=== PATIENT | male | born 1995 | race Caucasian/White ===

== ENCOUNTER 2020-01-19 11:08 | Emergency (ER) | payer OTHER, SELFPAY ==
--- NOTE | ~2020-01-19 | XR_ITS ---
XR chest 2V DATE: 01/19/2020 11:30 INDICATION: Midsternal chest pain TECHNIQUE: PA and lateral views COMPARISON: None FINDINGS: Normal heart size. No hilar or mediastinal enlargement. No pulmonary infiltrate or consolid ation, pleural effusion or pulmonary vascular congestion or pneumothorax. IMPRESSION: No active cardiopulmonary disease Reviewed, dictated and finalized at location B.
[2020-01-19 11:09] VITALS: BP 98/63; PULSE 89; RESP 16; TEMP 36.8; O2SAT 99
--- NOTE | 2020-01-19 11:14 | ECG_ITS ---
Measurements Intervals [place] Rate: 70 P: 76 WV: 152 QRS: 77 QRSD: 96 T: 47 QT: 336 QTc: 363 Interpretive Statements SINUS RHYTHM ST ELEVATION IN ANT/INF LEADS- PROBABLY EARLY REPOLARIZATION BORDERLINE ECG Electronically Signed On 01-19-2020 11:21:52 CDT by Adonis Portillo D.O.
[2020-01-19 11:25] LABS: Basophils Percent Auto 0.3 % (0.2-1.2); Eosinophils Absolute Auto 0.1 K/mm3 (0-0.3); Eosinophils Percent Auto 0.7 % (0-4.4); Hematocrit 45.1 % (42.0-52.0); Hemoglobin 15.6 g/dL (14.0-18.0); Immature Granulocyte Absolute 0.03 K/mm3 (0.00-0.031); Immature Granulocyte Percent A 0.3 % (0-0.5); Lymphocytes Absolute Auto 1.28 K/mm3 (0.9-3.2); Lymphocytes Percent Auto 14.1 % (18.3-44.2); Mean Corpuscular HGB Conc 34.6 g/dl (32-36); Mean Corpuscular Hemoglobin 30.9 pg (26-34); Mean Corpuscular Volume 89.3 fl (80-100); Mean Platelet Volume 9.7 fl (7.4-10.4); Monocytes Absolute Auto 0.6 K/mm3 (0.1-0.6); Monocytes Percent Auto 6.2 % (2.6-8.5); Neutrophils Absolute Auto 7.1 K/mm3 (1.3-6.7); Neutrophils Percent Auto 78.4 % (45.5-73.1); Platelet Count Result 229 k/mm3 (150-375); Red Blood Count 5.05 M/mm3 (4.6-6.20); Red Cell Distribution Width 12.3 % (11.5-14.5); White Blood Count 9.1 K/mm3 (4.5-10.0)
[2020-01-19 11:37] LABS: Blood Urea Nitrogen 15 mg/dL (9-20); Calcium 9.6 mg/dL (8.4-10.2); Carbon Dioxide 25 mmol/L (22-30); Chloride 105 mmol/L (98-107); Estimated CRCL calculation 157 ml/min; Estimated Glomerular Filt Rate > 60; Glucose 104 mg/dL (75-110); Potassium 4.4 mmol/L (3.4-5.0); Sodium 138 mmol/L (137-145)
[2020-01-19 11:43] LABS: INR 0.9; Prothrombin Time 12.2 Seconds (11.1-14.7)
[2020-01-19 11:44] LABS: Partial Thromboplastin Time 25.2 SECONDS (22.3-36.8)
[2020-01-19 11:49] LABS: Troponin I < 0.012 ng/mL (0.000-0.034)
[2020-01-19 12:59] VITALS: PULSE 61
[2020-01-19 13:00] VITALS: BP 125/74; PULSE 60; RESP 14; O2SAT 97
[2020-01-19] MEDS: ASPIRIN 81 MG CHEWABLE TABLET 324 MG PO (13:08)
--- NOTE | 2020-01-19 13:37 | ED.CHESTPAIN ---
HPI - Chest Pain General Chief Complaint: Chest Pain Stated Complaint: cp Time Seen by Provider: 01/19/20 12:53 History of Present Illness HPI narrative: Patient is a 24-year-old male who presents the ER with chest pain. Began yesterday while eating [employer] for lunch. Chaplin some discomfort in his central chest that radiates up into his neck. He has no difficulty actually breathing or swallowing. Patient reports symptoms are worse if he takes a deep breath, presses on his central chest, or lays down. No burning in his throat. No nausea or vomiting. Has not had similar symptoms before. Related Data Home Medications Medication Instructions Recorded Confirmed glycopyrrolate 1 mg PO DAILY 01/19/20 Allergies Allergy/AdvReac Type Severity Reaction Status Date / Time No Known Allergies Allergy Unknown Verified 01/19/20 11:12 Review of Systems Review of Systems: All systems reviewed & are unremarkable except as noted in HPI and below Constitutional: Constitutional: Denies chills and Denies weakness ENT: Denies nasal congestion and Denies sore throat Cardiovascular: Cardiovascular: Reports chest pain and Denies radiating jaw, neck or arm pain Respiratory: Respiratory: Denies cough and Denies dyspnea Gastrointestinal: Gastrointestinal: Denies abdominal pain, Denies diarrhea, Denies nausea and Denies vomiting PMFSH Past Medical History Medical History (Updated 01/19/20 @ 15:59 by Silviano Dougherty MD) Healthy adult male Surgical History Surgical History (Updated 01/19/20 @ 13:40 by Silviano Dougherty MD) No history of previous surgery Social History Social History (Updated 01/19/20 @ 13:41 by Silviano Dougherty MD) Smoking status: Never smoker Alcohol intake: never Substance use: never Gender identity (if verbalized by the patient): Male Exam Narrative: Exam Narrative: GENERAL: Well-appearing, well-nourished, and in no acute distress. HEAD: Normocephalic, atraumatic. ENT: Mucous membranes moist. CHEST: Clear to auscultation. No respiratory distress. Mild tenderness with light palpation to central chest wall left sternal border. HEART: Regular rate and rhythm. Normal peripheral pulses. ABDOMEN: Soft, nontender, nondistended. EXTREMITIES: Normal range of motion. No edema. SKIN: Warm, dry, no rash. NEURO: Alert and oriented x3. Course Course Emergency Course: Patient informed of results. Reports when he had his GI cocktail it decrease the discomfort and then when the numbing went away the discomfort increased. No real change with Toradol. Suspect patient scratched or caused irritation to his esophagus. He could potentially have eosinophilic esophagitis with stricture or Schatzki's ring that is causing discomfort as well. He is able to eat and drink which is very encouraging. Recommend follow-up with PCP and possible follow-up with GI as well. Will start on PPI and anti-inflammatories. We also discussed EKG, pericarditis follow-up less likely given near resolution with GI cocktail. Vital Signs Vital signs: Vital Signs Temperature 98.2 F 01/19/20 11:09 Pulse Rate 89 01/19/20 11:09 Respiratory Rate 16 01/19/20 11:09 Blood Pressure 98/63 L 01/19/20 11:09 Pulse Oximetry 99 01/19/20 11:09 Temperature 98.2 F 01/19/20 11:09 Pulse Rate 82 01/19/20 15:37 Respiratory Rate 19 01/19/20 15:37 Blood Pressure 121/78 01/19/20 15:37 Pulse Oximetry 100 01/19/20 15:37 MDM - Chest Pain Lab Data Result diagrams: 01/19/20 11:17 01/19/20 11:17 Labs: Lab Results 01/19/20 01/19/20 01/19/20 Range/Units 11:17 11:17 11:17 WBC 9.1 (4.5-10.0) K/mm3 RBC 5.05 (4.6-6.20) M/mm3 Hgb 15.6 (14.0-18.0) g/dL Hct 45.1 (42.0-52.0) % MCV 89.3 (80-100) fl MCH 30.9 (26-34) pg MCHC 34.6 (32-36) g/dl RDW 12.3 (11.5-14.5) % Plt Count 229 (150-375) k/mm3 MPV 9.7 (7.4-10.4) fl Immature Gran % (Auto) 0
[2020-01-19] MEDS: BELLADONNA ALK/PHENOB ELIX 10 ML, MAG HYDROX/ALUMINUM HYD/SIMETH 30 ML, LIDOCAINE HCL 2... PO (13:53)
[2020-01-19] MEDS: KETOROLAC 30 MG/ML VIAL (*BKC) IV PUSH (13:59)
[2020-01-19 15:07] LABS: Troponin I < 0.012 ng/mL (0.000-0.034)
[2020-01-19 15:07] LABS: D Dimer 0.27 ug/mL (<0.48)
[2020-01-19 15:37] VITALS: BP 121/78; PULSE 82; RESP 19; O2SAT 100
[2020-01-19 16:18] VITALS: BP 118/76; PULSE 75; RESP 14; O2SAT 100
== END 2020-01-19 16:19 | disposition home or self-care (01) ==
PROVIDERS: Emergency Provider Emergency Medicine
DX: R07.89 Other chest pain (principal); R94.31 Abnormal electrocardiogram [ECG] [EKG]
CPT/HCPCS: 36415; 71046; 80048; 84484; 85025; 85380; 85610; 85730; 93005; 96374; 99284; A9270; J1885

== ENCOUNTER 2024-12-06 18:17 | Emergency (ER) | payer SELFPAY ==
--- OUTSIDE RECORDS SUMMARY | 2024-12-06 18:22 | XMS_ITS | Data Portability ---
Author Organization [place] - [facility] OFFICE Address [address] [place] [address] Care Team Providers Care Automatic Pattern Edger Name Role Phone KASSIE LEMOS Primary Care Provider Assessment No assessment recorded. Plan of Treatment Reminders Order Date Submit Date Provider Last Modified By Organization Details Last Modified Time Details Appointments None recorded. Lab None recorded. Referral None recorded. Procedures None recorded. Surgeries None recorded. Imaging None recorded. Medication Orders magnesium oxide 400 mg (241.3 mg magnesium) tablet 2020 021 DBA_PATCH _[id number] [id number], [address] [place], [address], 09:19:34 Patient TargetsNo targets recorded. Patient Instructions Encounter Date Encounter Id Patient Instructions Last Modified By Organization Details Last Modified Time 01/24/2020 [id number] chest pain: care instructions nurbanski Not available 01/24/2020 17:10:04 05/01/2021 [id number] heart valve disease: care instructions nurbanski Not available 05/01/2021 12:55:01 mitral valve prolapse: care instructions nurbanski Not available 05/01/2021 12:55:01 chest pain: care instructions nurbanski Not available 05/01/2021 12:55:01 06/05/2021 [id number] heart valve disease: care instructions nurbanski Not available 06/05/2021 12:31:04 mitral valve prolapse: care instructions nurbanski Not available 06/05/2021 12:31:04 07/17/2021 [id number] heart valve disease: care instructions nurbanski Not available 07/17/2021 13:46:52 mitral valve prolapse: care instructions nurbanski Not available 07/17/2021 13:46:52 Reason for Referral None Reported. Results Created Date Observation Date Name Description Value Unit Range Abnormal Flag Note LastModifiedBy Organization Detail LastModifiedTime 01/27/20 20 01/19/2020 XR, chest , 1 view No observ ation record ed. Not Available 01/28 19:41:51 01/27/20 20 01/24/2020 elect anton givensgr am No observ ation record ed. Not Available 01/29 13:07:09 04/03/20 20 03/22/2020 stres s echoc ardio gram No observ ation record ed. [email or web address] Not Available 2019 11:02:40 05/21/20 21 05/15/2021 US, echoc ardio gram No observ ation record ed. [email or web address] Not Available 2020 12:58:46 08/22/19 22 06/26/2021 event monit or No observ ation record ed. [email or web address] Not Available 2021 11:16:31 09/02/19 22 06/26/2021 event monit or No observ ation record ed. [email or web address] Not Available 2021 12:13:21 Result Notes None recorded. Problems Name Problem SNOMED Code Status Onset Date Resolution Date Notes Provider Name and Address Organization Details Recorded Time Mitral valve prolapse 150311270 Active [facility], [place] - [facility] 1 12:54:40 Dropped beats - heart 116379826 Active [facility], [place] [facility] 1 12:30:40 Chest pain 21859070 Active [facility], [place] - [facility] 0 16:38:48 Dyspnea 640513064 Active [facility], [place] [facility] 0 16:38:57 Problem Notes None recorded. Medical Equipment None Reported. Allergies No known drug allergies Medications Name Sig Start Date Stop Date Status Note LastModified by Organization Details LastModified Time glycopyrro late 1 mg tablet 1 tablet twice a day 05/01 completed Not Available Not Available Not Available prednisone 10 mg tablet 07/17 completed no longer take 2 mb Not Available Not Available Not Available hydrocodon e 5 mg-acetami nophen 325 mg tablet 05/01 completed Not Available Not Available Not Available sulfametho xazole 800 mg-trimeth oprim 160 mg tablet 05/01 completed Not Available Not Available Not Available omeprazole 40 mg capsule,de layed release 1 tablet once ad ay 05/01 completed Not Available Not Available Not Available famotidine 20 mg tablet TAKE ONE TABLET BY MOUTH EVERY NIGHT AT BEDTIME 05/01 completed Not Available Not Available Not Available magnesium oxide 400 mg (241.3 mg magnesium) tablet Take 1 tablet every other day by oral route. active Not Available Not Available No t Available benzonatat e 100 mg capsule TAKE 1 CAPSULE BY MOUTH THREE TIMES DAILY NEEDED FOR COUGH 05/01 completed Not Available Not Available Not Available pantoprazo le 40 mg tablet,del ayed release 05/01 completed Not Available Not Available Not Available triamcinol one acetonide 0.1 % topical ointment active Not Available Not Available Not Available Tylenol 325 mg tablet Take 1 tablet by oral route as needed. active Not Available Not Available No t Available naproxen 500 mg tablet 1 tablet twice day 05/01 completed Not Available Not Available Not Available duloxetine 30 mg capsule,de layed release 05/01 completed Not Available Not Available Not Available ID NOW COVID-19 Test Kit TEST DIRECTED TODAY active Not Available Not Available No t Available Vitals Date Recorded Body height Body mass index (BMI) Body weight Heart rate Oxygen saturation Oxygen saturation in Arterial blood by Pulse oximetry Systolic And Diastolic Provider Name and Address Organization Details Last Updated DateTime 2 182.88 cm 22.8 kg/m2 26783.5 2 g 56 /min 99 % 99 % 124/62 mm[Hg] Rosalie Hutchinson [place] [facility] 2 12:15:55 Date Recorded Body height Body mass index (BMI) Body weight Heart rate Respiratory rate Oxygen saturation Oxygen saturation in Arterial blood by Pulse oximetry Systolic And Diastolic Provider Name and Address Organization Details Last Updated DateTime 0 182.88 cm 23.9 kg/m2 44322.2 6 g 75 /min 18 /min 98 % 98 % 110/76 mm[Hg] Leonarda Robledo [place] [facility] 0 16:37:14 Date Recorded Body weight Heart rate Oxygen saturation Oxygen saturation in Arterial blood by Pulse oximetry Systolic And Diastolic Provider Name and Address Organization Details Last Updated DateTime 1 69344.3 g 68 /min 99 % 99 % 116/68 mm[Hg] Rosalie Hutchinson [facility] 1 11:41:03 Social History Question Answer Notes LastModified by [employer] Details LastModified Time Tobacco Smoking Status Never Smoker Leonarda mack [place] - [facility] 01/24/2020 16:39:35 Do You Have An Advance Directive? No Information not available 01/24/2020 How Much Tobacco Do You Chew? None Information not available 01/24/2020 What Type Of Diet Are You Following? REGULAR Information not available 01/24/2020 Which Illicit Or Recreational Drugs Have You Used? No Information not available 01/24/2020 Live Alone Or With Others? With Others Information not available 01/24/2020 Marital Status Informatio n not available 01/24/2020 How Many Children Do You Have? 0 Information not available 01/24/2020 General Stress Level Low Information not available 01/24/2020 Sex: Unknown Functional Status Question Answer Note LastModified by [employer] Details LastModified Time What is your level of alcohol consumption? Occasional Information not available 01/24/2020 What is your exercise level? Moderate Information not available 01/24/2020 Mental Status None recorded. Family History Relationship Description Onset Age of this Age Resolved Age Notes LastModified by Organization Details LastModified Time Father No current problems or disability essent ial hypert ension Not available 01/24/2020 16:39:31 Mother No current problems or disability Not available 01/10 16:39:19 Medical History No medical history recorded. Past Encounters Encounter ID Performer Location Encounter Start Date Encounter Closed Date Diagnosis/Indication Diagnosis SNOMED-CT Code Diagnosis ICD10 Code Diagnosis Note [id number] MD Marlene Bustos Office [address] [place] [address] 01/24/2020 15:48:28 01/24/2020 17:00:30 Chest pain 70794278 R07.9 Patient presents with chest pain with atypical features. Given the history, exam findings and intermedia te cardiac risk factors, I feel additional investigat ion is warranted. I have made arrangemen ts in the near future for an exercise stress echocardio gram to evaluate for any ischemia, structural heart disease, or exercise induced arrythmia. The procedure was discussed with the patient, and risks, benefits, and alternativ e options were explained. Appropriat e labwork has not been performed recently, therefore I have made arrangemen ts for further testing. I have asked the patient to curtail exercise and activities until our investigat ion is complete. I have made the following adjustment s to the present medical regimen. [id number] MD Marlene Bustos Office [address] [place] [address] 05/01/2021 12:00:38 05/01/2021 14:10:34 Chest pain 99375208 R07.9 Okay to write letter stating patient should not get COVID-19 vaccine from cardiac standpoint /NU/ek Mitral valve prolapse 40 7279711 I34.1 [place] [id number] MD Marlene Bustos Office [address] [place] [address] 06/05/2021 11:30:46 06/05/2021 12:31:54 Mitral valve prolapse 911693513 I34.1 ECHO showed normal LV systolic function. MV thickened, start Mg supplement ation Dropped beats - heart 24 7526562 I49.9 Will arrange for event monitor [id number] MD Marlene Bustos Office [address] [place] [address] 07/17/2021 12:09:30 07/17/2021 13:16:55 Mitral valve prolapse 558825497 I34.1 ECHO showed normal LV systolic function. MV thickened, start Mg supplement ation Dropped beats - heart 24 4573939 I49.9 event monitor showed that pt remains in NSR with rare PACsStates that no change after taking Mg. Does not was to try Metoprolol at this point. Health Concerns Section Related Observation LastModified by Organization Detai ls LastModified Time None Recorded Concern Status LastModified by Organization Details LastModified Time None Recorded Advance Directives Directive N: Payers Insurance Date Sequence Insurance Name Policy Number Policy Funes Covered Member ID Funes Member ID Guarantor Name 07/17/2021 1 [facility] [id number] Keith Flowers [place] [id number] Juaquin Schmiskie 07/17/2021 1 [facility] [id number] Kiersten Flowers [place] [id number] Juaquin Schmiskie 05/17/2021 2 [employer] (O) Juaquin Schmiskie [id number] Juaquin Schmiskie 01/12/2022 1 [employer] [id number] Juaquin Schmiskie [id number] Juaquin Schmiskie Notes Date Note Type Note Provider Name and Address Organization Details Recorded Time 01/24/2020 text/html 01/24/2020 CC: C hest discomfort HPI: 24 year old male came for cardiac evaluation with the chief complaints of chest discomfort. Pt states that he inhaled lot of fumes and then next day experienced sharp in intensity chest discomfort associated with some shortness of breath. The patient presented to [facility] ER (ER 01/18) and after 7 hrs was dc. All labs were WNL. CE negative, no acute EKG changes. CXR showed normal heart size and no pulmonary abnormalities. Pt was told that it is probably musculoskeletal or gastric in nature. Was prescribed NSAIDS and PPI. Stated that had 2 yrs ago ECHO which was fine No known history of coronary artery disease. No history of previous myocardial infarction. No history of heart failure. No known valvular heart disease. No known arrhythmia. Patient reports feeling well overall. Patient is active, but is not exercising regularly. Non-exertional chest pain reported. No arm pain. No neck pain. No nausea and vomiting. No diaphoresis. No shortness of breath at rest. No dyspnea on exertion. No fatigue.No orthopnea. No PND. No leg swelling. No palpitation. No dizziness. No syncope . No pre-syncope. No claudication. No major bleeding events. No side effects from medications. Complete ROS negative except as stated in the HPI and ROS. Results from this visit, or from the past: EKG (01/24/20): NSR, NSST changes Jarad JOE Navarro [facility] 01/24/2020 17:10:08 05/01/2021 text/html 05/01/21CC : Car diac follow up HPI: 26 years old WM with PMH of MVP is here for follow up. Pt was seen last time about a year ago. States that has episodes of chest discomfort. It is sharp in nature, not related to physical activity. He denies ER visits and hospitalizations since he was last seen.Today reports:Denies chest pain.Denies shortness of breath at rest. Has mild dyspnea on exertion.No orthopnea. No PNDs.Denies heart palpitations.Denies dizziness. Denies syncope or near syncope.No ankle or leg edema.No major bleeding events.No reported side effects from medications. Taking medications as prescribed with no missed doses.Denies snoring, daytime somnolence and AM headache.*Pt dose not have any lipid labs previously. Previously :Pt states that he inhaled lot of fumes and then next day experienced sharp in intensity chest discomfort associated with some shortness of breath. The patient presented to [facility] ER (ER 01/18) and after 7 hrs was dc. CE negative, no acute EKG changes. CXR showed normal heart size and no pulmonary abnormalities. Pt was told that it is probably musculoskeletal or gastric in nature. Was prescribed NSAIDS and PPI. Stated that had 2 yrs ago ECHO which was fineResults from this visit, or from the past:EKG (01/24/20): NSR, NSST changes Jarad JOE Navarro [facility] 05/01/2021 12:55:46 06/05/2021 text/html 06/05/21CC : Car diac follow upHPI: 26 years old White Male with PMH of MVP is here for 1 month follow up with ECHO to discuss the results. Pt states that occasionally he has palpitations/skipped beats. Denies any labs recently. He was last seen in the clinic on 05/01/21, since then he feels fineHe denies ER visits and hospitalizations since he was last seen.Today reports:Denies chest pain.Denies shortness of breath at rest. Has mild dyspnea on exertion.No orthopnea. No PNDs.Denies heart palpitations.Denies dizziness. Denies syncope or near syncope.No ankle or leg edema.No major bleeding events.No reported side effects from medications. Taking medications as prescribed with no missed doses.Denies snoring, daytime somnolence and AM headache. *Pt dose not have any lipid labs previously. dose mot takes any statins. *Had ECHO done in 05/15/21 showed LV chamber size is normal. There is borderline LV hypertrophy. The estimated left ventricle ejection fraction is 55-60 % (normal). Normal left atrial pressure and diastolic function. There is mild thickening of the mitral valve anterior leaflet. There is trace triscupid regurgitation. There is mild pulmonic regurgitation. Previously:States that has episodes of chest discomfort. It is sharp in nature, not related to physical activity. Pt states that he inhaled lot of fumes and then next day experienced sharp in intensity chest discomfort associated with some shortness of breath. The patient presented to [facility] ER (ER 01/18) and after 7 hrs was dc. CE negative, no acute EKG changes. CXR showed normal heart size and no pulmonary abnormalities. Pt was told that it is probably musculoskeletal or gastric in nature. Was prescribed NSAIDS and PPI. Stated that had 2 yrs ago ECHO which was fineResults from this visit, or from the past:EKG (01/24/20): NSR, NSST changes Jarad Lopez [place], [place] - [facility] 06/05/2021 12:31:51 07/17/2021 text/html 07/17/21CC : Hardik olmos follow upHPI: 26 years old White Male with PMH of MVP is here for follow up. He was last seen in the clinic on 06/05/21 , since then he feels fine. Has rarely skipped beats. No dizziness or syncopeHe denies ER visits and hospitalizations since he was last seen. Today reports:Denies chest pain.Denies shortness of breath at rest. Has mild dyspnea on exertion.No orthopnea. No PNDs.Denies heart palpitations.Denies dizziness. Denies syncope or near syncope.No ankle or leg edema.No major bleeding events.No reported side effects from medications. Taking medications as prescribed with no missed doses.Denies snoring, daytime somnolence and AM headache.*Last LDL was 83 done on 06/19/21 .Pt dose not takes any statins. LIPID 06/20/21 : CHOL 145 HDL CHOL 48 TRIG 60 LDL-CHOL 83CMP 06/20/21 :BUN 11 CR 0.97 NA 139 POT 4.3 CHLORIDE 102 calcium 2.1 MAG 1.77. Previously: Pt states that occasionally he has palpitations/skipped beats. *Pt dose not have any lipid labs previously. dose mot takes any statins. *Had ECHO done in 05/15/21 showed LV chamber size is normal. There is borderline LV hypertrophy. The estimated left ventricle ejection fraction is 55-60 % (normal). Normal left atrial pressure and diastolic function. There is mild thickening of the mitral valve anterior leaflet. There is trace triscupid regurgitation. There is mild pulmonic regurgitation. States that has episodes of chest discomfort. It is sharp in nature, not related to physical activity. Pt states that he inhaled lot of fumes and then next day experienced sharp in intensity chest discomfort associated with some shortness of breath. The patient presented to [facility] ER (ER 01/18) and after 7 hrs was dc. CE negative, no acute EKG changes. CXR showed normal heart size and no pulmonary abnormalities. Pt was told that it is probably musculoskeletal or gastric in nature. Was prescribed NSAIDS and PPI. Stated that had 2 yrs ago ECHO which was fineResults from this visit, or from the past:EKG (01/24/20): NSR, NSST changes Jarad Lopez [facility], [place] - [facility] 07/17/2021 13:48:02
--- OUTSIDE RECORDS SUMMARY | 2024-12-06 18:23 | XMS_ITS | Continuity of Care Document ---
Author Organization [facility] Address [address] [place] [address] Phone Care Team Providers Care Measurement And Verification Engineer Name Role Phone Tu Mckinley MD Unavailable Unavailable Allergies, Adverse Reactions, Alerts Substance Reaction Status Criticality No Known Allergies Active No Inform ation Medications Medication Instructions Dosage Effective Dates (start - stop) Status Comments Cymbalta 30 mg capsule,delayed release take 1 capsule by oral route every day 30 MG - Active Procedures Procedure Date PREV VISIT, NEW, AGE 18-39 Advance Directives Directive Yes / No Effective Date File Name No Information Encounters Encounter Description Practice Location Reason(s) For Visit Diagnoses Date Provider Providers Copied on Encounter PREV VISIT, NEW, AGE 18-39 [facility], [address] [place] [place], [place], [id number], tel:[phone] [facility] physical (chief complaint) Encounter for general adult medical examination without abnormal findings Elías Mae. [address], [place], [id number], [place]. tel:[phone] [facility], [address] [place] [place], [place], [id number], [place] tel:[phone] [facility] No Information Elías Mae. [address], [place], [id number], [place]. tel:[phone] Family History Family Member Type Diagnosis Age At Onset Father Problem MS 50 Brother Problem Alive and well Mother Problem Alive and well Payers Payer name Insurance type Covered constitution party ID Authoriza tion(s) No Information Social History Type Description Quantity Date Captured Comments Alcohol Use Details beer & liquor Caffeine Use Details Unknown Tobacco Use Status Current non-smoker Smoking Status Never smoker Non-Smoking Tobacco Use Details : No Details Available : No Details Available Sex Male Vital Signs Date / Time: Height Weight BMI Pulse Rate Blood Pressure Temperature Respiratory Rate Body Surface Area Head Circumference BMI percentile Pulse Ox Inhaled Ox 3:45 PM 72.00 in 183.40 lbs 24.8 7 kg/m eter (2) 60 /min 133/65 mm[Hg] 98.6 F 16 /min Chief Complaint And Reason For Visit From encounter dated '02/27/2021 15:45'. physical (chief complaint). Description: Pt needs annual physical pt c/o sharp pain all over upper torso and chest area intermittently for 2-3 months Pt states that he has sharp pain in random spots throughout the day lasting several seconds to mins and then goes away. Pt denies any trigger factor .Pt denies any relationship to any activity. Pt states that the pain is spotty and around chest, abdomen, and also sometimes lateral side of chest and also whole back but does not involve lower extremity. Pt had some left side chest pain last year related to activity last year and he saw performance engineer and had negative stress test and also he had cardiac echo which showed mild ari valve prolapse. Pt states that sometimes he notices heart skipping beat since one year ago. Pt denies any palpitation Pt denies any sob. Pt states that he feels a lot of stress recently and feels anxious. Pt works 2 jobs and he feels a lot of stress and he goes to school as well. Pt denies any depression or any suicidal thought Pt denies any crying spells. pt feels mild GERD sometimes which seems worse lately. Ptdenies any nausea, vomiting . Pt denies any neuropathy symptoms Pt denies any vision issue or rash.Pt also does a lot of lifting and he has some mild knee and shoulder pain but not bad ,Pt denies any joint swelling Plan Of Treatment Date Type Action Status No Information History Of Present Illness Encounter Date Complaint History Of Prese nt Illness Aug-18-2021 physical Pt needs annual physical pt c/o sharp pain all over upper torso and chest area intermittently for 2-3 months Pt states that he has sharp pain in random spots throughout the day lasting several seconds to mins and then goes away. Pt denies any trigger factor .Pt denies any relationship to any activity. Pt states that the pain is spotty and around chest, abdomen, and also sometimes lateral side of chest and also whole back but does not involve lower extremity. Pt had some left side chest pain last year related to activity last year and he saw performance engineer and had negative stress test and also he had cardiac echo which showed mild ari valve prolapse. Pt states that sometimes he notices heart skipping beat since one year ago. Pt denies any palpitation Pt denies any sob. Pt states that he feels a lot of stress recently and feels anxious. Pt works 2 jobs and he feels a lot of stress and he goes to school as well. Pt denies any depression or any suicidal thought Pt denies any crying spells. pt feels mild GERD sometimes which seems worse lately. Pt denies any nausea, vomiting . Pt denies any neuropathy symptoms Pt denies any vision issue or rash. Pt also does a lot of lifting and he has some mild knee and shoulder pain but not bad ,Pt denies any joint swelling Instructions Date Instruction Additional Infor benjy No Information Assessments Type Assessment Date assessment Encounter for all l adult medical examination without abnormal findings Mental Status Date Cognitive Assessment Orientation - Boley ed to time, place, person, situation.
--- OUTSIDE RECORDS SUMMARY | 2024-12-06 18:23 | XMS_ITS | Referral Summary ---
Author Organization [facility] Address [address] [place] [address] Care Team Providers Care Document Control Associate Name Role Phone No, Physician Primary Care Provider [phone] Encounters Date Type Department Care Team Description 11/08/2024 12:28 PM CDT - 11/08/2024 11:59 PM CDT Hospital Encounter [facility] - Diagnostic [facility] Floor 8 [place] [address] Hyperhidrosis Discharge Disposition: Discharge to home or self care 11/08/2024 Orders Only [facility] Surgery [address] [place] [address] 5 [place] [phone] Carla Espinoza MD Hyperhidrosis (Primary Dx) 11/08/2024 12:45 PM CDT Office Visit [facility] Surgery [address] [place] [address] 5 [place] [phone] Carla Espinoza MD Hyperhidrosis (Primary Dx) 11/07/2024 Orders Only [facility] Surgery [address] [place] [phone] Tonio Cuba NP Nerve pain (Primary Dx); Hyperhidrosis 10/31/2024 9:50 AM CDT - 10/31/2024 12:15 PM CDT Surgery [facility] Operating Room 1 [place] [phone] Carla Espinoza MD VIDEO-ASSISTED THORACIC SURGERY SYMPATHECTOMY 10/31/2024 9:32 AM CDT Anesthesia Event [facility] Operating Room [address] [place] [address] Amita Tidwell MD Wilkens, Kelly Ann, NP 10/31/2024 8:41 AM CDT - 10/31/2024 1:07 PM CDT Hospital Encounter [facility] Operating Room [address] [place] [address] Carla Espinoza MD Hyperhidrosis Discharge Disposition: Discharge to home or self care 10/14/2024 Telephone [facility] Cardiothoracic Surgery [address] [place] [address] Advanced Medicine 8th Floor [address] Room [address] [place] [phone] Deidre Leyva 10/14/2024 Orders Only [facility] Surgery [address] [place] [phone] Tonio Cuba NP MVP (mitral valve prolapse) (Primary Dx) 10/13/2024 8:30 AM CDT Pre-Admission Testing [facility] for Preoperative Assessment and Planning [facility] ([facility]) [address] [place] [address] Preoperative testing (Primary Dx) 10/11/2024 2:00 PM CDT Office Visit [facility] Surgery [address] [place] [phone] Carla Espinoza MD Hyperhidrosis 10/06/2024 Orders Only [facility] Surgery [address] [place] [phone] Carla Espinoza MD Hyperhidrosis (Primary Dx) from Last 3 Months Allergies No known active allergies Medications magnesium oxide (MAG-OX) 400 mg (241.3 mg elemental magnesium) tabletIndicati ons:supplement Take 1 tablet (400 mg total) by mouth every morning Active cholecalcifero l, vitamin D3, (VITAMIN D3 ORAL)Indicatio ns:supplement Take 1 tablet by mouth every morning Active zinc gluconate 50 mg tabletIndicati ons:supplement Take 1 tablet (50 mg total) by mouth every morning Active ascorbic acid (ascorbic acid with richard hips) 500 mg tablet,chewabl eIndications:s upplement Take 1 tablet/chew tab (500 mg total) by mouth every morning Active gabapentin (NEURONTIN) 300 mg capsuleIndicat ions:Nerve pain Take 1 capsule (300 mg total) by mouth every 12 (twelve) hours as needed (nerve pain) 60 capsule 5 12/08/19 25 Active oxyCODONE (ROXICODONE) 5 mg immediate release tabletIndicati ons:Pain Take 1 tablet (5 mg total) by mouth every 4 (four) hours as needed for pain (pain not controlled by other medicines. Take stool softeners to prevent constipation.) 20 tablet 5 11/09/19 25 Discontinu ed(Reorder ) bacitracin 500 unit/gram ointmentIndica tions:Skin rash Apply topically 2 (two) times a day for 7 days 15 g 5 11/16/19 25 oxyCODONE (ROXICODONE) 5 mg immediate release tabletIndicati ons:Pain Take 1 tablet (5 mg total) by mouth every 4 (four) hours as needed for pain (pain not controlled by other medicines. Take stool softeners to prevent constipation.) for up to 7 days 42 tablet 5 11/16/19 25 Active Problems Patient Care Coordination No te Formatting of this note migh t be different from the original. This is a 29-year-old presenting to us as a self-referral for an evaluation of hyperhidrosis. He is scheduled for a chest x-ray prior to this visit. He is here for further surgical evaluation and discussion. Problem Noted Date Diagnosed Date Hyperhidrosis 10/12/2024 Immunizations Immunization Administration Dates Next Due Hep A, Pediatric 03/16/2009 Influenza, Live, Trivalent, Intranasal 0,03/16/2009 Varicella 03/16/2009 Social History Tobacco Use Types Packs/Day Years Used Date Smoking Tobacco: Never Smokeless Tobacco: Current Comments:Zyn pouches daily x 1 year AUDIT-C Answer Date Recorded Q1: How often do you have a drink containing alc ohol? 2-4 times a month 10/31/2024 Q2: How many drinks containi ng alcohol do you have on a typical day when you are drinking? 10 or more 10/31/2024 Q3: How often do you have si x or more drinks on one occasion? Monthly 10/31/2024 Personal Safety Answer Date Recorded Have you ever been in or are you currently in a harmful physical or emotional relationship or is someone making you feel afraid or unsafe? Denies 10/31/2024 Sex and Gender Information Value Date Recorded Sex Assigned at Not on file Legal Sex Male 2:18 PM CDT Gender Identity Not on file Sexual Orientation Not on file Last Filed Vital Signs Vital Sign Reading Time Taken Comments Blood Pressure 114/72 11/08/2024 12:41 PM CDT Pulse 65 11/08/2024 12:41 PM CDT Temperature 36.4 C (97.5 F) 11/08/2024 12:41 PM CDT Respiratory Rate 15 11/08/2024 12:41 PM CDT Oxygen Saturation 100% 11/08/2024 12:41 PM CDT Inhaled Oxygen Concentration - - Weight 82.3 kg (181 lb 6.4 oz) 11/08/2024 12:41 PM CDT Height 182.9 cm (6') 11/08/2024 12:41 PM CDT Body Mass Index 24.6 11/08/2024 12:41 PM CDT Plan of Treatment Not on file Procedures Procedure Name Priority Date/Time Associated Diagnosis Comments XR CHEST PA LATERAL 2 VIEWS Schedule Routine, Read Routine (OP Routine) 11/08/2024 12:35 PM CDT Hyperhidrosis XR CHEST 1 VIEW ED Urgent/IP Urgent 10/31/2024 12:03 PM CDT SURGICAL PATHOLOGY Routine 10/31/2024 10 :41 AM CDT Hyperhidrosis ANESTHESIA INTUBATION Routine 10/31/2024 10:19 AM CDT PERIPHERAL LINE Routine 10/31/2024 9:50 AM CDT VIDEO-ASSISTED THORACIC SURGERY SYMPATHECTOMY 10/31/2024 9:37 AM CDT Hyperhidrosis Case Notes 4-17@1121-time length changed per cristal-jw04/16@1200- Per Cristal via phone call needs to edit case -DMF 4-15@1109-line up change per cristal-jw TYPE AND SCREEN STAT 10/31/2024 9:05 AM CDT EGFR Routine 10/13/2024 9:41 AM CDT Preoperative testing BASIC METABOLIC PANEL Routine 10/13/2024 9:41 AM CDT Preoperative testing CBC WITHOUT DIFFERENTIAL Routine 10/13/2024 9:41 AM CDT Preoperative testing TYPE AND SCREEN 14 DAY Routine 10/13/2024 9:41 AM CDT Preoperative testing from Last 3 Months Results * X-ray chest 2 views (11/08/2024 12:35 PM CDT) Anatomical Region Laterality Modality Body, Chest N/A Digital Radiogra phy 11/08/2024 1:29 PM CDT Impressions 11/08/2024 1:37 PM CDT Comparison radiograph dated 10/31/2024. Interval reduction in the soft tissue gas overlying the bilateral chest shepherd, now minimal in volume. No focal pulmonary consolidation, pleural effusion, or pneumothorax. Normal cardiomediastinal silhouette. Dictated by: Samina Almaguer MD The radiology attending physician has personally reviewed this study, and had reviewed and/or edited this written report and agrees with it. Electronically signed by: Serena Wong M.D. Narrative 11/08/2024 1:37 PM CDT EXAMINATION: 2 view chest radiograph Procedure Note Serena Wong MD - 11/08/2024 EXAMINATION: 2 view chest radiograph IMPRESSION: Comparison radiograph dated 10/31/2024. Interval reduction in the soft tissue gas overlying the bilateral chest shepherd, now minimal in volume. No focal pulmonary consolidation, pleural effusion, or pneumothorax. Normal cardiomediastinal silhouette. Dictated by: Samina Almaguer MD The radiology attending physician has personally reviewed this study, and had reviewed and/or edited this written report and agrees with it. Electronically signed by: Serena Wong M.D. us Carla Espinoza MD IMG XR PROCEDURES Final Result * XR Chest 1 View (10/31/2024 12:03 PM CDT) Anatomical Region Laterality Modality Body, Chest N/A Computed Radiogr aphy 10/31/2024 2:17 PM CDT Impressions 10/31/2024 3:34 PM CDT No radiographs for comparison. Subcutaneous gas in the bilateral chest shepherd, greater on the left. No focal pulmonary consolidation, pleural effusion, or pneumothorax. Normal cardiomediastinal silhouette. Dictated by: Samina Almaguer MD The radiology attending physician has personally reviewed this study, and had reviewed and/or edited this written report and agrees with it. Electronically signed by: Sunny Barnett M.D. Narrative 10/31/2024 3:34 PM CDT EXAMINATION: 1 view chest radiograph Procedure Note Sunny Barnett MD - 10/31/2024 EXAMINATION: 1 view chest radiograph IMPRESSION: No radiographs for comparison. Subcutaneous gas in the bilateral chest shepherd, greater on the left. No focal pulmonary consolidation, pleural effusion, or pneumothorax. Normal cardiomediastinal silhouette. Dictated by: Samina Almaguer MD The radiology attending physician has personally reviewed this study, and had reviewed and/or edited this written report and agrees with it. Electronically signed by: Sunny Barnett M.D. us Carla Espinoza MD IMG XR PROCEDURES Final Result * Surgical pathology (10/31/2024 10:41 AM CDT) Tissue (Nerve) 10/31/2024 10 :41 AM CDT Tissue specimen (specimen) (Nerve) 10/31/2024 10:56 AM CDT Narrative PATHOLOGY [facility] - 11/02/2024 4:05 PM CDT EPIC results best viewed via link to PDF [facility] [place] [address] Note to Patients: This report may contain a detailed description of human tissue sent by a health care provider to the laboratory for pathologic evaluation. The content of this report is essential for diagnosis and may provide important critical findings. This information may be unfamiliar to patients to review without a medical professional present. It is advised that the patient review this report in the presence of a health care provider who can answer questions and explain the details. SURGICAL PATHOLOGY REPORT FINAL Patient Name: SID DENNEY Gender: M : 1995 (Age: 29) Address: [address] [place] [phone] Hospital #: [id number] Taken:10/31/2024 Received:10/31/2024 Reported: 11/02/2024 Patient Type: [facility] Service: Cardiothoracic Location: [facility] OR POD 3 Physician(s): Carla Espinoza M.D. Diagnosis: A. Soft tissue, left symphathetic nerve, biopsy: - Peripheral nerve with no histopathologic abnormality B. Soft tissue, right symphathetic nerve, biopsy: - Fibroadipose tissue with fibrosis; no evidence of peripheral nerve 11/02/2024 16:05 By this signature, I attest that the above diagnosis is based upon my personal examination of the slides(and/or other material indicated in the diagnosis). Edd Jewell M.D. Report Electronically Reviewed and Signed Out By Edd Jewell M.D. 11/02/2024 16:05:19 History: The patient is a 29-year-old man with hyperhidrosis. Operative Procedure: video-assisted thoracic surgery sympathectomy Specimen(s) Received: A: Left symphathetic nerve B: Right sympathetic chain Gross Description: Received in two formalin jars labeled with the patient's identifiers. A. Labeled left sympathetic nerve is a frayed strip of soft white-pink tissue (1.9 x 0.6 x 0.2 cm). The specimen is submitted entirely in cassette A1. Jar 0 B. Labeled right sympathetic chain is an irregular frayed piece of soft white corrales tissue (0.9 x 0.4 x 0.2 cm). The specimen is submitted entirely in cassette B1. Jar 0 bao2/10/31/2024 15:33 PA(s): AMAYA Bonilla (ASCP)CM By this signature, I attest that the above diagnosis is based upon my personal examination of the slides(and/or other material). Addenda/Procedures The performance characteristics of some immunohistochemical stains, fluorescence in-situ hybridization tests and immunophenotyping by flow cytometry cited in this report (if any) were determined by the Surgical Pathology and Flow Cytometry Departments at [facility] as part of an ongoing quality system manager program and in compliance with federally mandated regulations drawn from the Clinical Laboratory Improvement Act of 1988 (CLIA '88). Some of these tests rely on the use of analyte specific reagents and are subject to specific labeling requirements by the US Food and Drug Administration. Such diagnostic tests may only be performed in a facility that is certified by the Department of Health and Human Services as a high complexity laboratory under CLIA '88. The FDA has determined that such clearance or approval is not necessary. This test is used for clinical purposes. It should not be regarded as investigational or for research. Nevertheless, federal rules concerning the medical use of analyte specific reagents require that the following disclaimer be attached to the report: This test was developed and its performance characteristics determined by the Surgical Pathology and Flow Cytometry Departments of [facility]. It has not been cleared or approved by the U. S. Food and Drug Administration. IMAGES AND SCANNED DOCUMENTS, IF INCLUDED, ONLY VIEWABLE IN PDF VERSION OF REPORT Carla Espinoza MD LAB PATHOLOGY ORDERABLES Final Result PATHOLOGY [facility] 3rd Floor [place], [place] [phone] * Airway (10/31/2024 10:19 AM CDT) Narrative Jessica Najera MD - 10/31/2024 10:19 AM CDT Jessica Najera MD 10/31/2024 10:19 AM Airway Patient location: OR Urgency: elective Indications for airway management: anesthesia Difficult airway: no Staff: Supervising provider: Amita Tidwell MD Placed by: Resident: Jessica Najera MD Emergent airway documentation: Risks and benefits discussed: yes Consent obtained: yes Consent given by: patient Airway prep: Preoxygenated: yes Patient position: sniffing MILS maintained throughout: yes Mask difficulty assessment: 1 - vent by mask Spontaneous ventilation during airway: absent Sedation level during airway: GA Final airway details: Final airway type: endotracheal airway Tube type: ETT - double lumen left ETT double lumen: 37 fr Cuffed: yes Technique used for successful ETT placement: video laryngoscopy Devices/Methods used in placement: stylet Insertion site: oral Blade type: Abhinav Video blade type: [employer] Blade size: 4 Cormack-Lehane (video): grade I - full view of glottis Cuff inflated with: air Placement verified by: bronchoscopy, CO2 detection and single lung ventilation Airway secured with: silk tape Number of attempts: 1 Planned trial extubation: yes us Amita Tidwell MD ANESTHESIA ORDERABLES Final Result * Peripheral IV Catheter (10/31/2024 9:50 AM CDT) Narrative Jessica Najera MD - 10/31/2024 9:50 AM CDT Jessica Najera MD 10/31/2024 12:53 PM Peripheral IV Catheter Patient location: OR Staff: Supervising provider: Amita Tidwell MD Placed by: Resident: Jessica Najera MD Preprocedure prep: Prep solution: chlorhexadine PPE: gloves and provider hat/mask PIV line: Laterality: left Site: wrist Catheter size: 18 g Technique: anatomical landmarks and direct visualization Procedure details: occlusive dressing applied and good blood return Number of attempts: 2 Assessment: Events: patient tolerated procedure well with no complications us Amita Tidwell MD ANESTHESIA ORDERABLES Final Result * Type and screen (10/31/2024 9:05 AM CDT) Kevin, indirect Negative ABO Rh O Positive [facility] Blood 10/31/2024 9:05 AM CDT 10/31/2024 9:41 AM CDT Narrative [facility] - 10/31/2024 10:45 AM CDT Has the patient had Daratumumab or Isatuximab in the past 6 months?->Unknown us Amita Tidwell MD LAB BLOOD BANK TEST ORDERABL ES Final Result Performing Organization Address [facility] Co de Phone Number [facility] Department [place] [address] * TYPE AND SCREEN 14 DAY (10/13/2024 9:41 AM CDT) Pathologist [facility] Kevin, indirect Negative ABO Rh O Positive [facility] Blood 10/13/2024 9:41 AM CDT 10/13/2024 10:25 AM CDT Narrative [facility] - 10/13/2024 11:31 AM CDT Is this test being ordered in advance for a procedure?->Yes Expected date of procedure:->10/14/24 Has the patient been transfused in the past 3 months?->No us Laney Toussaint NP LAB BLOOD BANK TEST ORDERAB LES Final Result Performing Organization Address [facility] Co de Phone Number [facility] [place] [address] * eGFR (10/13/2024 9:41 AM CDT) Pathologist [facility] eGFR >90 >=60 mL/min/1. 73 m2 Comment: Interpretive Data Reference Interval Normal >/= 90 mL/min/1.73m2 Mildly decreased* 60 - 89 mL/min/1.73m2 Mildly to moderately decreased 45 - 59 mL/min/1.73m2 Moderately to severely decreased 30 - 44 mL/min/1.73m2 Severely decreased 15 - 29 mL/min/1.73m2 Kidney Failure < 15 mL/min/1.73m2 *Relative to young adult level Estimated glomerular filtration rate is determined by the 2020 CKD-EPI equation recommended by the National Kidney Foundation (A Unifying Approach to GFR Estimation: Recommendations of the NKF-ASK Task Force on Reassessing the Inclusion of Race in Diagnosing Kidney Disease, JASN 2020). The CKD-EPI equation should not be used for patients with unstable renal function and has not been validated in children and those over 70. Current interpretive data was last reviewed 2021. Blood 10/13/2024 9:41 AM CDT 10/13/2024 10:13 AM CDT Laney Toussaint NP LAB BLOOD ORDERABLES Final Result Performing Organization Address City/[facility] Co de Phone Number [facility] Department [place] [address] * CBC without differential (10/13/2024 9:41 AM CDT) WBC 4.03 3.80 - 9.90 K/cumm Hgb 14.8 13.0 - 17.5 g/dL [facility] Hct 43.2 38.9 - 50.3 % [facility] Plt 222 150 - 400 K/cumm [facility] MPV 9.6 9.1 - 12.3 fL [facility] RBC 4.82 4.30 - 5.80 M/cumm [facility] MCV 89.6 81.3 - 96.4 fL [facility] MCH 30.7 27.1 - 33.3 pg [facility] MCHC 34.3 32.3 - 35.7 g/dL [facility] RDW CV 12.7 11.1 - 14.9 % [facility] RDW SD 41.5 35.7 - 48.1 fL [facility] NRBC abs 0.00 0.00 - 0.01 K/cumm [facility] Blood 10/13/2024 9:41 AM CDT 10/13/2024 10:13 AM CDT Laney Toussaint NP LAB BLOOD ORDERABLES Final Result [facility] Department [place] [address] * Basic metabolic panel (10/13/2024 9:41 AM CDT) Sodium 140 135 - 145 mmol/L Potassium, pl 4.3 3.3 - 4.9 mmol/L [facility] Chloride 107 97 - 110 mmol/L [facility] CO2 27 22 - 32 mmol/L [facility] Anion gap 6 2 - 15 mmol/L [facility] BUN 20 6 - 25 mg/dL [facility] Creatinine 1.06 0.80 - 1.30 mg/dL [facility] Glucose 101 70 - 199 mg/dL [facility] Comment: Interpretive Data Fasting glucose >/= 126 mg/dl is diagnostic for diabetes. Fasting is defined as no caloric intake for at least 8 hours. Fasting glucose between 100 mg/dl to 125 mg/dl is diagnostic of prediabetes. In a patient with classic symptoms of hyperglycemia or hyperglycemic crisis, a random glucose >/= 200 mg/dl is diagnostic for diabetes. In the absence of unequivocal hyperglycemia, results should be confirmed by repeat testing. The classification and Diagnosis of Diabetes Diabetes Care 2021; 46: S19-S40. Current interpretive data was last revised 2022. Calcium 9.1 8.5 - 10.3 mg/dL [facility] Blood 10/13/2024 9:41 AM CDT 10/13/2024 10:13 AM CDT Laney Toussaint NP LAB BLOOD ORDERABLES Final Result Performing Organization Address City/[facility] Co de Phone Number [facility] Department [place] [address] from Last 3 Months Insurance [facility] PPO [facility] PPO Advance Directives For more information, please contact: [phone] * Full Code (Latest Code Status on File) Date Activated Date Inactivated Comments 10/31/2024 11:34 AM 10/31/2024 5:07 PM Care Teams Document Control Associate Relationship Specialty Start Date End Date No, Physician PCP - General 10/06/24
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
--- OUTSIDE RECORDS SUMMARY | 2024-12-06 18:23 | XMS_ITS | Patient Health Record ---
Author Organization [facility] Address [address] [facility] [address] [place] [address] Care Team Providers Care Spike Machine Operator Name Role Phone CANDACE SNEED Primary Care Provider Allergies No Known Allergies Reason For Referral No Information Medications Medication SIG (Take, Route, Frequency, Duration) Notes Start Date End Date Status Venlafaxine HCl ER 75 MG TAKE 1 CAPSULE BY MOUTH EVERY DAY WITH FOOD FOR 90 DAYS for 90 Active Venlafaxine HCl ER 37.5 MG TAKE 1 CAPSUL E BY MOUTH EVERY DAY WITH FOOD FOR 90 DAYS for 90 Active Social History Tobacco Use: Social History Observation Description Date Details (start date - stop date) Never Smoker NA - NA Tobacco Use/Smoking Question Answer Notes Are you a nonsmoker Alcohol Screen (Audit-C) Question Answer Notes Did you have a drink contain ing alcohol in the past year? Yes Interpretation Negative How often did you have 6 or more drinks on one occasion in the past year? Less than monthly (1 point) How many drinks did you have on a typical day when you were drinking in the past year? 5 or 6 drinks (2 points) How often did you have a dri nk containing alcohol in the past year? Monthly or less (1 point) Tobacco use other than smoking: Question Answer Notes Are you an other tobacco user? No Problems Problem Type SNOMED Code ICD Code Onset Dates Problem Status W/U Status Risk Notes Problem 72951818 RADHA (generalized anxiety disorder) (F41.1) Active confirmed Problem 05090457 Current mild episode of major depressive disorder without prior episode (F32.0) Active confirmed Problem 098429242 Elevated liver function tests (R79.89) Active confirmed Plan Of Treatment No Information Insurance Providers Payer Name Payer Address Payer Phone Subscriber Number Group Number Insured Name Patient Relationship to Insured Coverage Start Date Coverage End Date [employer] [address] GERI MCLEAN [id number] Juaquin Dexter Self - patient is the insured Medical (General) History Medical History History ICD Code migraine headaches anxiety disorder
--- OUTSIDE RECORDS SUMMARY | 2024-12-06 18:23 | XMS_ITS | Clinical Summary ---
Author Organization [facility] Address [address] [place] [address] Care Team Providers Care Career Orientation Teacher Name Role Phone No, Physician Primary Care Provider [phone] Allergies No known active allergies Medications magnesium [...] Problem Noted Date Diagnosed Date Hyperhidrosis 10/12/2024 Encounters Date Type Department Care Team Description 11/08/2024 12:45 PM CDT Office Visit [facility] [address] [place] [address] [address] [place] [phone] Carla Espinoza MD Hyperhidrosis (Primary Dx) 11/08/2024 12:28 PM CDT - 11/08/2024 11:59 PM CDT Hospital Encounter [facility] - [facility] Imaging [address] [place] [address] Floor 8 [place] [address] Hyperhidrosis Discharge Disposition: Discharge to home or self care 11/08/2024 Orders Only [facility] [address] [place] [address] 5 [place] [phone] Carla Espinoza MD Hyperhidrosis (Primary Dx) 11/07/2024 Orders Only [facility] [address] [place] [address] 5 [place] [phone] Tonio Cuba NP Nerve pain (Primary Dx); Hyperhidrosis 10/31/2024 9:50 AM CDT - 10/31/2024 12:15 PM CDT Surgery [facility] Operating Room [address] [place] [address] Carla Espinoza MD VIDEO-ASSISTED THORACIC SURGERY SYMPATHECTOMY 10/31/2024 9:32 AM CDT Anesthesia Event [facility] [address] [place] [address] Amita Tidwell MD Wilkens, Kelly Ann, NP 10/31/2024 8:41 AM CDT - 10/31/2024 1:07 PM CDT Hospital Encounter [facility] Operating Room [address] [place] [address] Carla Espinoza MD Hyperhidrosis Discharge Disposition: Discharge to home or self care 10/14/2024 Telephone [facility] [address] [place] [address] Advanced Medicine 8th Floor [address] [place] [phone] Deidre Leyva 10/14/2024 Orders Only [facility] [address] [place] [phone] Tonio Cuba NP MVP (mitral valve prolapse) (Primary Dx) 10/13/2024 8:30 AM CDT Pre-Admission Testing [facility] for Preoperative Assessment and Planning [facility] Advanced Medicine ([facility]) [address] [place] [address] Preoperative testing (Primary Dx) 10/11/2024 2:00 PM CDT Office Visit [facility] [address] [place] [phone] Carla Espinoza MD Hyperhidrosis 10/06/2024 Orders Only [facility] [address] [place] [address] 5 [place] [phone] Carla Espinoza MD Hyperhidrosis (Primary Dx) from Last 3 Months Immunizations Immunization Administration Dates Next Due Hep A, Pediatric 03/16/2009 Influenza, Live, Trivalent, Intranasal 0,03/16/2009 Varicella 03/16/2009 Surgical History Surgery Date Site/Laterality Comments WISDOM TOOTH EXTRACTION 07/13/2013 - 07/12/2014 ESOPHAGOGASTRODUODENOSCOPY Medical History Medical History Date Comments Hyperhidrosis Family History Medical History Relation Name Comments MSH2 Father Father has MS Anesthesia problems Neg Hx Malig Hyperthermia Neg Hx Pseudochol deficiency Neg Hx Relation Name Status Comments Father Social History Tobacco Use Types Packs/Day Years [...] on file Sexual Orientation Not on file Obstetrics History Last Filed Vital Signs Vital Sign Reading [...] 11/08/2024 12:41 PM CDT Plan of Treatment Health Maintenance Due Date Last Done Comments Depression Screening 1995 Hepatitis C Screening 1995 DTaP/Tdap/Td Vaccine (1 - Tdap) 2008 Varicella Vaccines (2 of 2 - 2-dose childhood series) 06/08/2009 03/16/2009 Hepatitis B Screening 2015 Regular Well Visit/Exam 18-64 2015 Influenza Vaccine (Season Ended) 2025 03/25/2010, 03/16/2009 HPV Vaccines Aged Out No longer eligi ble based on patient's age to complete this topic Pneumococcal vaccine <65 Aged Out No longer eligible based on patient's age to complete this topic Procedures Procedure Name Priority Date/Time Associated Diagnosis [...] it. Electronically signed by: Serena Wong M.D. Carla Espinoza MD IMG XR PROCEDURES Final [...] it. Electronically signed by: Sunny Barnett M.D. [facility] Caitlyn Espinoza MD IMG XR PROCEDURES Final Result * Surgical pathology (10/31/2024 10:41 AM CDT) Tissue (Nerve) 10/31/2024 10 :41 AM CDT Tissue specimen (specimen) (Nerve) 10/31/2024 10:56 AM CDT Narrative PATHOLOGY [facility] - 11/02/2024 4:05 PM CDT EPIC results best viewed via link to PDF [facility] [place] [address] Note to Patients: This report may contain [...] Gender: M : 1995 (Age: 29) Address: [address] [place] [address] Hospital #: [id number] Taken:10/31/2024 Received:10/31/2024 Reported: 11/02/2024 Patient Type: [facility] Service: Cardiothoracic Location: [facility] OR POD 3 Physician(s): Carla Espinoza M.D. Diagnosis: A. Soft tissue, left symphathetic nerve, biopsy: - Peripheral nerve with no histopathologic abnormality B. Soft tissue, right symphathetic nerve, biopsy: - Fibroadipose tissue with fibrosis; no evidence of peripheral nerve ctb11/02/2024 16:05 By this signature, I attest that [...] submitted entirely in cassette B1. Jar 0 ba10/31/2024 15:33 PA(s): AMAYA Bonilla ([facility])CM By this signature, I attest that the above diagnosis is based upon my personal examination of the slides(and/or other material). Addenda/Procedures The performance characteristics of some immunohistochemical stains, fluorescence in-situ hybridization tests and immunophenotyping by flow cytometry cited in this report (if any) were determined by the Surgical Pathology and Flow Cytometry Departments at [facility] as part of an ongoing vice president quality program and in compliance with federally mandated [...] Surgical Pathology and Flow Cytometry Departments of [facility]. It has not been cleared or approved by the U. S. Food and Drug Administration. IMAGES AND SCANNED DOCUMENTS, IF INCLUDED, ONLY VIEWABLE IN PDF VERSION OF REPORT us Carla Espinoza MD LAB PATHOLOGY ORDERABLES Final Result PATHOLOGY [facility] 3rd Floor [place], [place] [phone] * Airway (10/31/2024 10:19 AM CDT) Narrative [...] oral Blade type: Abhinav Video blade type: Sagastume Blade size: 4 Cormack-Lehane (video): grade I [...] patient tolerated procedure well with no complications Amita Tidwell MD ANESTHESIA ORDERABLES Final Result * Type and screen (10/31/2024 9:05 AM CDT) Kevin, indirect Negative ABO Rh O Positive [facility] Blood 10/31/2024 9:05 AM CDT 10/31/2024 9:41 AM CDT [facility] - 10/31/2024 10:45 AM CDT Has the patient had Daratumumab or Isatuximab in the past 6 months?->Unknown us Amita Tidwell MD LAB BLOOD BANK TEST ORDERABL ES Final Result Performing Organization Address City/State/[facility] Co de Phone Number [facility] Department [place] [address] * TYPE AND SCREEN 14 DAY (10/13/2024 9:41 AM CDT) Kevin, indirect Negative ABO Rh O Positive [facility] Blood 10/13/2024 9:41 AM CDT 10/13/2024 10:25 AM CDT Neeraj LAGUNA [facility] - 10/13/2024 11:31 AM CDT Is this test being ordered in advance for a procedure?->Yes Expected date of procedure:->10/14/24 Has the patient been transfused in the past 3 months?->No Laney Toussaint NP LAB BLOOD BANK TEST ORDERAB LES Final Result Performing Organization Address [facility] Co de Phone Number JASE GARZA [facility] Department of [facility] [place] [address] * eGFR (10/13/2024 9:41 AM CDT) Pathologist [facility] eGFR >90 >=60 mL/min/1. 73 m2 Comment: [...] BLOOD ORDERABLES Final Result Performing Organization Address [facility]/ZIP Co de Phone Number JASE GARZA [facility] Department [place] [address] * CBC without differential (10/13/2024 9:41 AM CDT) Pathologist [facility] WBC 4.03 3.80 - 9.90 K/cumm Hgb 14.8 13.0 - 17.5 g/dL [facility] Hct 43.2 38.9 - 50.3 % [facility] Plt 222 150 - 400 K/cumm [facility] MPV 9.6 9.1 - 12.3 fL [facility] RBC 4.82 4.30 - 5.80 M/cumm [facility] MCV 89.6 81.3 - 96.4 fL [facility] MCH 30.7 27.1 - 33.3 pg [facility] MCHC 34.3 32.3 - 35.7 g/dL [facility] RDW CV 12.7 11.1 - 14.9 % [facility] RDW SD 41.5 35.7 - 48.1 fL [facility] NRBC abs 0.00 0.00 - 0.01 K/cumm [facility] Blood 10/13/2024 9:41 AM CDT 10/13/2024 10:13 AM CDT Laney Toussaint EDUCATIONAL DIAGNOSTICIAN LAB BLOOD ORDERABLES Final Result Performing Organization Address City/State/[facility] Co de Phone Number [facility] Department [place] [address] * Basic metabolic panel (10/13/2024 9:41 AM CDT) Sodium 140 135 - 145 mmol/L Potassium, pl 4.3 3.3 - 4.9 mmol/L [facility] Chloride 107 97 - 110 mmol/L [facility] CO2 27 22 - 32 mmol/L [facility] Anion gap 6 2 - 15 mmol/L [facility] BUN 20 6 - 25 mg/dL [facility] Creatinine 1.06 0.80 - 1.30 mg/dL [facility] Glucose 101 70 - 199 mg/dL [facility] Comment: Interpretive Data Fasting glucose >/= 126 [...] classification and Diagnosis of Diabetes Diabetes Care 202; 46: S19-S40. Current interpretive data was last revised 2022. Calcium 9.1 8.5 - 10.3 mg/dL [facility] Blood 10/13/2024 9:41 AM CDT 10/13/2024 10:13 AM CDT Laney Toussaint NP LAB BLOOD ORDERABLES Final Result [facility] [place] [address] from Last 3 Months Insurance [employer] PPO [employer] PPO Advance Directives For more information, please contact: [phone] * Full Code (Latest Code Status on File) Date Activated Date Inactivated Comments 10/31/2024 11:34 AM 10/31/2024 5:07 PM Care Teams Career Orientation Teacher Relationship Specialty Start Date End Date No, Physician PCP - General 10/06/24
--- OUTSIDE RECORDS SUMMARY | 2024-12-06 18:23 | XMS_ITS | Clinical Summary ---
Author Organization [facility] Address [address] [place] [address] Care Team Providers Care Antenna Machine Operator Name Role Phone Unavailable Primary Care Provider Unavailabl e Source Comments [facility],non-owned Affiliates and Associated Physician Practices is amultiple site organization consisting of ambulatory clinics and hospital sitesin [place], [place], [place] and [place]. This disclosure is being madepursuant to the Care Everywhere program and may not contain all information available regarding this patient. Last updated 18.[facility] Allergies No known active allergies Medications * Be aware that medications may not be up to date on this document. Alwaysverify current medications with the patient. glycopyrrolate (ROBINUL) 1 MG tabletIndications :Primary focal hyperhidrosis of axilla,Hyperhidro sis of palms and soles Take 1- 2 tablets in the morning and 1 tablet in the afternoon (~8 hours later). 270 tablet 3 0 Active Additional Information Patient not taking.Reported on 09/25/2020 pantoprazole EC (PROTONIX) 40 MG tablet Take 1 tablet by mouth once daily 30 tablet 0 Active Additional Information Patient not taking.Reported on 09/25/2020 famotidine (PEPCID) 20 MG tablet Take 1 tablet by mouth at bedtime 145 tablet 4 0 Active Additional Information Patient not taking.Reported on 09/25/2020 benzonatate (TESSALON) 100 MG capsule Take 1 (one) capsule by mouth 3 times daily as needed for Cough 30 capsule Active Active Problems Problem Noted Date Diagnosed Date Atypical chest pain 04/24/2020 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 Family History Medical History Relation Name Comments Cancer - Colon Paternal Grandmother Cancer - Skin, Melanoma Neg Hx Cancer - Skin, Non Melanoma Neg Hx Relation Name Status Comments Paternal Grandmother Social History Tobacco Use Types Packs/Day Years Used Date Smoking Tobacco: Never Smokeless Tobacco: Never Alcohol Use Standard Drinks/Week Comments Yes 0 (1 standard drink = 0.6 oz pur e alcohol) rarely Sex and Gender Information Value Date Recorded Sex Assigned at Not on file 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 Gender Identity Not on file Sexual Orientation Not on file Last Filed Vital Signs Vital Sign Reading Time Taken Comments Blood Pressure 112/68 09/25/2020 10:34 AM CDT Pulse 65 09/25/2020 10:34 AM CDT Temperature 36.8 C (98.3 F) 09/25/2020 10:34 AM CDT Respiratory Rate 16 09/25/2020 10:34 AM CDT Oxygen Saturation 98% 09/25/2020 10:34 AM CDT Inhaled Oxygen Concentration - - Weight 79.4 kg (175 lb) 09/25/2020 10:34 AM CDT Height 182.9 cm (6') 09/25/2020 10:34 AM CDT Body Mass Index 23.73 09/25/2020 10:34 AM CDT Plan of Treatment Health Maintenance Due Date Last Done Comments HIV SCREENING 2012 HEPATITIS C SCREENING 04/19/2015 DTAP/TDAP/TD VACCINES (1 - Tdap) 2016 HEPATITIS B VACCINE (1 of 3 - 19+ 3-dose series) 2016 COVID-19 VACCINE (1 - 2023-2 5 season) 2024 DEPRESSION SCREENING 07/13/2024 INFLUENZA VACCINE (Season Ended) 2025 ZOSTER VACCINE (1 of 2) 2047 HIB VACCINE Aged Out No longer eligi ble based on patient's age to complete this topic HPV VACCINE Aged Out No longer eligi ble based on patient's age to complete this topic MENINGOCOCCAL (Group B) VACC INE SHARED DECISION-MAKING Aged Out No longer eligibl e based on patient's age to complete this topic MENINGOCOCCAL GROUPS A/C/Y/W VACCINE Aged Out No longer eligible b ased on patient's age to complete this topic PNEUMOCOCCAL VACCINE Aged Out No long er eligible based on patient's age to complete this topic Insurance [facility]
[2024-12-06 18:32] VITALS: BP 118/63; PULSE 86; RESP 16; TEMP 36.8; O2SAT 100
--- NOTE | 2024-12-06 19:43 | PC.NURSE ---
Pt sister to barn worker desk - brother is having increase sob. Pt pulled back to triage and revitalized. Pt has no hives at all on the body, throat is open, slightly red but pt is maintaining secretions and in no acute distress. VS hr65, 98% RA, 150/68bp
[2024-12-06 19:44] VITALS: BP 150/68; PULSE 65; RESP 16; O2SAT 98
--- NOTE | 2024-12-06 20:12 | PC.NURSE ---
Sister of patient reporting that they are going to go somewhere else. EMS IV removed by Leonor Perry RN. Patient is alert and oriented-no difficulty with breathing or swallowing noted-patient is talking on his cell phone
--- NOTE | 2024-12-06 20:14 | PC.NURSE ---
pt no longer wishes to wait. pt family wheeled him to parking lot. no distress noted.
--- OUTSIDE RECORDS SUMMARY | 2024-12-06 20:19 | XMS_ITS | Clinical Summary ---
Author Organization [facility] Address [address] [place] [address] Care Team Providers Care Enrollment Manager Name Role Phone No, Physician Primary Care Provider [phone] Allergies No known active allergies Medications magnesium [...] Description 11/08/2024 12:45 PM CDT Office Visit [facility] Surgery [address] [place] [address] 5 [place] [phone] Carla Espinoza MD Hyperhidrosis (Primary Dx) 11/08/2024 12:28 PM CDT - 11/08/2024 11:59 PM CDT Hospital Encounter [facility] - Diagnostic Imaging [address] [place] [address] Floor 8 [place] [address] Hyperhidrosis Discharge Disposition: Discharge to home or self care 11/08/2024 Orders Only [facility] Surgery [address] [place] [address] 5 [place] [phone] Carla Espinoza MD Hyperhidrosis (Primary Dx) 11/07/2024 Orders Only [facility] Surgery [address] [place] [address] 5 [place] [phone] Tonio Cuba NP Nerve pain (Primary Dx); Hyperhidrosis 10/31/2024 9:50 AM CDT - 10/31/2024 12:15 PM CDT Surgery [facility] Operating Room [address] [place] [address] Carla Espinoza MD VIDEO-ASSISTED THORACIC SURGERY SYMPATHECTOMY 10/31/2024 9:32 AM CDT Anesthesia Event [facility] Operating Room [address] [place] [address] Amita Tidwell MD Wilkens, Kelly Ann, NP 10/31/2024 8:41 AM CDT - 10/31/2024 1:07 PM CDT Hospital Encounter [facility] Operating Room [address] [place] [address] Carla Espinoza MD Hyperhidrosis Discharge Disposition: Discharge to home or self care 10/14/2024 Telephone [facility] Cardiothoracic Surgery [address] [place] [address] Advanced Medicine 8th Floor [address] Room [address] [place] [phone] Deidre Leyva 10/14/2024 Orders Only [facility] Surgery [address] [place] [phone] Tonio Cuba NP MVP (mitral valve prolapse) (Primary Dx) 10/13/2024 8:30 AM CDT Pre-Admission Testing [facility] for Preoperative Assessment and Planning [facility] Advanced Medicine ([facility]) [address] [place] [address] Preoperative testing (Primary Dx) 10/11/2024 2:00 PM CDT Office Visit [facility] Surgery [address] [place] [phone] Carla Espinoza MD Hyperhidrosis 10/06/2024 Orders Only [facility] Surgery [address] [place] [address] 5 [place] [phone] Carla Espinoza MD Hyperhidrosis (Primary Dx) from [...] it. Electronically signed by: Sunny Barnett M.D. [facility] Caitlyn Espinoza MD IMG XR PROCEDURES Final Result * Surgical pathology (10/31/2024 10:41 AM CDT) Tissue (Nerve) 10/31/2024 10 :41 AM CDT Tissue specimen (specimen) (Nerve) 10/31/2024 10:56 AM CDT Narrative PATHOLOGY [facility] - 11/02/2024 4:05 PM CDT EPIC results best viewed via link to PDF [facility] Danna [facility] [place] [address] Note to Patients: This report may contain [...] M : 1995 (Age: 29) Address: [address] [place] [phone] Hospital #: [id number] Taken:10/31/2024 Received:10/31/2024 Reported: 11/02/2024 Patient Type: [facility] Service: Cardiothoracic Location: [facility] OR POD 3 [...] Jar 0 ba10/31/2024 15:33 PA(s): AMAYA Bonilla ([facility])CM By this signature, I attest that the above diagnosis is based upon my personal examination of the slides(and/or other material). Addenda/Procedures The performance characteristics of some immunohistochemical stains, fluorescence in-situ hybridization tests and immunophenotyping by flow cytometry cited in this report (if any) were determined by the Surgical Pathology and Flow Cytometry Departments at [facility] as part of an ongoing quality lab assoc program and in compliance with federally mandated [...] Surgical Pathology and Flow Cytometry Departments of [facility]. It has not been cleared or approved by the U. S. Food and Drug Administration. IMAGES AND SCANNED DOCUMENTS, IF INCLUDED, ONLY VIEWABLE IN PDF VERSION OF REPORT us Carla Espinoza MD LAB PATHOLOGY ORDERABLES Final Result PATHOLOGY [facility] 3rd Floor [place], [place] [phone] * Airway (10/31/2024 10:19 AM CDT) Narrative [...] Kevin, indirect Negative ABO Rh O Positive [facility] Blood 10/31/2024 9:05 AM CDT 10/31/2024 9:41 AM CDT [facility]ative [facility] - 10/31/2024 10:45 AM CDT Has the patient had Daratumumab or Isatuximab in the past 6 months?->Unknown us Amita Tidwell MD LAB BLOOD BANK TEST ORDERABL ES Final Result Performing Organization Address City/State/[facility] Co de Phone Number [facility] Department [place] [address] * TYPE AND SCREEN 14 DAY (10/13/2024 9:41 AM CDT) Kevin, indirect Negative ABO Rh O Positive [facility] Blood 10/13/2024 9:41 AM CDT 10/13/2024 10:25 AM CDT Neeraj LAGUNA [facility] - 10/13/2024 11:31 AM CDT Is this test being ordered in advance for a procedure?->Yes Expected date of procedure:->10/14/24 Has the patient been transfused in the past 3 months?->No Laney Toussaint NP LAB BLOOD BANK TEST ORDERAB LES Final Result Performing Organization Address [facility] Co de Phone Number JASE GARZA [facility] [place] [address] * eGFR (10/13/2024 9:41 AM CDT) Pathologist [...] BLOOD ORDERABLES Final Result Performing Organization Address [facility]/ZIP Co de Phone Number JASE GARZA [facility] Department [place] [address] * CBC without differential (10/13/2024 9:41 AM CDT) Pathologist [facility] WBC 4.03 3.80 - 9.90 K/cumm Hgb 14.8 13.0 - 17.5 g/dL [facility] Hct 43.2 38.9 - 50.3 % [facility] Plt 222 150 - 400 K/cumm [facility] MPV 9.6 9.1 - 12.3 fL [facility] RBC 4.82 4.30 - 5.80 M/cumm [facility] MCV 89.6 81.3 - 96.4 fL [facility] MCH 30.7 27.1 - 33.3 pg [facility] MCHC 34.3 32.3 - 35.7 g/dL [facility] RDW CV 12.7 11.1 - 14.9 % [facility] RDW SD 41.5 35.7 - 48.1 fL [facility] NRBC abs 0.00 0.00 - 0.01 K/cumm [facility] Blood 10/13/2024 9:41 AM CDT 10/13/2024 10:13 AM CDT Laney Toussaint SHIFT COMMANDER LAB BLOOD ORDERABLES Final Result Performing Organization Address City/State/[facility] Co de Phone Number [facility] Department [place] [address] * Basic metabolic panel (10/13/2024 9:41 AM CDT) Sodium 140 135 - 145 mmol/L Potassium, pl 4.3 3.3 - 4.9 mmol/L [facility] Chloride 107 97 - 110 mmol/L [facility] CO2 27 22 - 32 mmol/L [facility] Anion gap 6 2 - 15 mmol/L [facility] BUN 20 6 - 25 mg/dL [facility] Creatinine 1.06 0.80 - 1.30 mg/dL [facility] Glucose 101 70 - 199 mg/dL [facility] Comment: Interpretive Data Fasting glucose >/= 126 [...] BLOOD ORDERABLES Final Result JASE VOGEL [facility] [place] [address] from Last 3 Months Insurance [employer] PPO [employer] PPO Advance Directives For more information, please contact: [phone] * Full Code (Latest Code Status on File) Date Activated Date Inactivated Comments 10/31/2024 11:34 AM 10/31/2024 5:07 PM Care Teams Enrollment Manager Relationship Specialty Start Date End Date No, Physician PCP - General 10/06/24
--- OUTSIDE RECORDS SUMMARY | 2024-12-06 20:19 | XMS_ITS | Continuity of Care Document ---
Author Organization [facility] Address [address] [place] [address] Phone Care Team Providers Care Stencil Inspector Name Role Phone Tu Mckinley MD Unavailable [...] on Encounter PREV VISIT, NEW, AGE 18-39 [facility], [address] [place], [place], [address], tel:[phone] [facility] physical (chief complaint) Encounter for general adult medical examination without abnormal findings Elías Mae. [address] [place], [place], [address], [place]. tel:[phone] [facility], [address] [place], [place], [address], [place] tel:[phone] [facility] No Information Elías Mae. [address] [place], [place], [address], [place]. tel:[phone] Family History Family Member Type Diagnosis Age At Onset Father Problem MS 50 Brother Problem Alive and well Mother Problem Alive and well Payers Payer name Insurance type Covered republican ID Authoriza tion(s) No Information Social History [...] to activity last year and he saw inspector water pollution control and had negative stress test and also [...] to activity last year and he saw inspector water pollution control and had negative stress test and also [...] Mental Status Date Cognitive Assessment Orientation - Whately ed to time, place, person, situation.
--- OUTSIDE RECORDS SUMMARY | 2024-12-06 20:19 | XMS_ITS | Continuity of Care Document ---
Author Organization [facility] Address [address] [place] [address] Phone Care Team Providers Care Instructor Dramatic Arts Name Role Phone Jose Luis Benitez MD [...] Diagnoses Date Provider Providers Copied on Encounter [facility], [address], [place], [place], [address] , [place] tel:[phone] [facility] No Information 2 Emmanuel Amaya. [address], [place], [place], [address], [place]. tel:[phone] [facility], [address], [place], [place], [address] , [place] tel:[phone] [facility] Chest pain, unspecified type 0 Emmanuel Amaya. [address], [place], [place], [address], [place]. tel:[phone] [facility], [address], [place], [place], [address] , [place] tel: [phone] [facility] No Information 9 Emmanuel Amaya. [address], [place], [place], [address], [place]. tel:[phone] [facility], [address], [place], [place], [address] , [place] tel: [phone] [facility] Abnormal EKG 9 Emmanuel Amaya. [address], [address], [place], [place], [address], [place]. tel:[phone] [facility], [address], [place], [place], [address] , [place] tel: [phone] [facility] Encounter for general adult medical examination without abnormal findingsRecurrent cold sores 8 Emmanuel Amaya. [address], [address], [place], [place], [address], [place]. tel:[phone] Referring Provider: Jose Luis Smith, [address], [place], [address] . tel:[phone] [facility], [address], [place], [place], [address] , [place] tel: [phone] [facility] Encounter for routine child health examination without abnormal findings 7 Emmanuel Amaya. [address], [address], [place], [place], [address], [place]. tel:[phone] Referring Provider: Jose Luis Smith, [address], [place], [address] . tel:[phone] [facility], [address], [place], [place], [address] , [place] tel: [phone] [facility] Lipid screeningEncounter for routine child health examination without abnormal findings Mar-2 5-201 6 Emmanuel Amaya. [address], [place], [place], [address], [place]. tel:[phone] Referring Provider: Jose Luis Smith, [address], [place], [address] . tel:[phone] [facility], [address], [place], [place], [address] , [place] tel: [phone] [facility] Lipid screeningViral warts 5 Emmanuel Amaya. [address], [place], [place], [address], [place]. tel:[phone] Referring Provider: Jose Luis Smith, [address], [place], [address] . tel:[phone] [facility], [address], [place], [place], [address] , [place] tel: [phone] [facility] Lipid screeningRoutine infant or child health check 4 Emmanuel Amaya. [address], [place], [place], [address], [place]. tel:[phone] Referring Provider: Jose Luis Smith, [address], [place], [address] . tel:[phone] [facility], [address], [place], [place], [address] , [place] tel: [phone] [facility] No Information 3 Emmanuel Amaya. [address], [place], [place], [address], [place]. tel:[phone] [facility], [address], [place], [place], [address] , [place] tel: [phone] [facility] No Information 3 Emmanuel Amaya. [address], [place], [place], [address], [place]. tel:[phone] Referring Provider: Jose Luis Smith, [address] [facility], [place], [address] . tel:[phone] [facility], [address], [place], [place], [address] , tel: [phone] [facility] Examination of eyes and visionEXAM EARS & HEARING NECNeed for prophylactic vaccination and inoculation against other specified single bacterial diseaseNEED FOR PROPHYLACTIC VACCINATION AND INOCULATION, OTHER VIRAL DISEASESRoutine infant or child health check 8 2 Emmanuel Amaya. [address], [address] [facility], [place], [place], [address], [place]. tel:[phone] Referring Provider: Jose Luis Smith, [address] [place] [address] [facility], [place], [address] . tel:[phone] [facility], [address], [place], [place], [address] , tel: [phone] [facility] Hordeolum externum 1 Emmanuel Amaya. [address] [place] [address], [address] [facility], [place], [place], [address], [place]. tel:[phone] Referring Provider: Jose Luis Smith, [address] [place] [address] [facility], [place], [address] . tel:[phone] [facility], [address], [place], [place], [address] , tel: [phone] [facility] BACKACHE NOS Sep 3-201 0 Emmanuel Amaya. [address] [place] [address], [address] [facility], [place], [place], [address], [place]. tel:[phone] [facility], [address], [place], [place], [address] , [place] tel: [phone] Conversion Department CERVICALGIA 2-200 7 Emmanuel Amaya. [address] [place] [address], [address] [facility], [place], [place], [address], [place]. tel:[phone] [facility], [address], [place], [place], [address] , tel: [phone] [facility] SPASMODIC TORTICOLLIS 6 Emmanuel Amaya. [address] [facility] [address], [address], [place], [place], [address], [place]. tel:[phone] [facility], [address], [place], [place], [address] , [place] tel: [phone] [facility] No Information 5 Emmanuel Amaya. [address] [facility] [address], [address], [place], [place], [address], [place]. tel:[phone] [facility], [address], [place], [place], [address] , [place] tel: [phone] [facility] ACUTE LYMPHADENITIS 4 Emmanuel Amaya. [address] [facility] [address] [facility], [address], [place], [place], [address], [place]. tel:[phone] Family History Family Member Type Diagnosis Age [...] vis 01[birth year]12 ; Source: New Immunization Record 13444 - Influenza administered Source: So urce Unspecified 34098 - Influenza administered Source: So urce Unspecified 41054 - Varicella administered Source: So urce Unspecified 39146 - Hepatitis_A administered Source: Source Unspecified 43333 - DTaP_DTP_DT_PEDS administered Sarita rce: Source Unspecified 27878 - MMR administered Source: Source Unspecified 61162 - Polio_OPV_IPV administered Source : Source Unspecified 13320 - Varicella administered Source: So urce Unspecified 12862 - DTaP_DTP_DT_PEDS administered Sarita rce: Source Unspecified 14689 - MMR administered Source: Source Unspecified 20996 - Hib administered Source: Source Unspecified 50631 - Polio_OPV_IPV administered Source : Source Unspecified 32560 - Hepatitis_B administered Source: Source Unspecified 50843 - DTaP_DTP_DT_PEDS administered Sarita rce: Source Unspecified 99187 - Hib administered Source: Source Unspecified 60444 - Hib administered Source: Source Unspecified 24285 - DTaP_DTP_DT_PEDS administered Sarita rce: Source Unspecified 46393 - Polio_OPV_IPV administered Source : Source Unspecified 56421 - DTaP_DTP_DT_PEDS administered Sarita rce: Source Unspecified 17886 - Hepatitis_B administered Source: Source Unspecified 55514 - Hib administered Source: Source Unspecified 67942 - Polio_OPV_IPV administered Source : Source Unspecified 79457 - Hepatitis_B administered Source: Source Unspecified Payers Payer name Insurance type Covered alliance party ID Authoriza tion(s) [facility] RAILROAD ACCOUNTS CI [id number] [facility] CHOICE VARNELL CI [id number] [facility] CHOICE VARNELL CI [id number] [facility] [employer]IL[employer] ACCOUNTS CI [id number] [facility] CHOICE IRMA CI [id number] [facility] [employer]IL[employer] ACCOUNTS CI [id number] Social History Type Description Quantity Date Captured [...] screen (15-17 yr) due Goal Vision screen (10-11 yr) due Goal Vision screen (8-9 yr) due Goal Vision screen (12-14 yr) due Goal Hematocrit . Due on 020 due Goal Well visit (18 years) due Goal Vision screen (18-21 yr) due Referral Referred To: Angelo Craig MD [address] [facility]
[address] [place], [phone] Ordered: Referrals: Cardiology. Angelo Craig MD. Evaluation/diagnostic/treatment [...]
--- OUTSIDE RECORDS SUMMARY | 2024-12-06 20:19 | XMS_ITS | Clinical Summary ---
Author Organization [facility] [employer] Address [address] [place] [address] Care Team Providers Care Clean Up Supervisor Name Role Phone Unavailable Primary Care Provider Unavailabl e Source Comments [facility] [employer],non-owned Affiliates and Associated Physician Practices is amultiple site organization consisting of ambulatory clinics and hospital sitesin [place], [place], [place] and [place]. This disclosure is being madepursuant to the Care Everywhere program and may not contain all information available regarding this patient. 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
--- OUTSIDE RECORDS SUMMARY | 2024-12-06 20:19 | XMS_ITS | Referral Summary ---
Author Organization [facility] Address [address] [place] [address] Care Team Providers Care Prototype Special Build Name Role Phone No, Physician Primary Care Provider [phone] Encounters Date Type Department Care Team Description 11/08/2024 12:28 PM CDT - 11/08/2024 11:59 PM CDT Hospital Encounter [facility] - Diagnostic Imaging [facility] [place] [place] Floor [address] [place] [address] Hyperhidrosis Discharge Disposition: Discharge to home or self care 11/08/[address] [facility] Surgery [address] [place] [address] 5 [place] [phone] Carla Espinoza MD Hyperhidrosis (Primary Dx) 11/08/2024 12:45 PM CDT Office Visit [facility] Surgery [address] [place] [address] 5 [place] [phone] Carla Espinoza MD Hyperhidrosis (Primary Dx) 11/07/[address] [facility] Surgery [address] [place] [phone] Tonio Cuba NP Nerve pain (Primary Dx); Hyperhidrosis 10/31/2024 9:50 AM CDT - 10/31/2024 12:15 PM CDT Surgery [facility] Operating Room [address] [place] [phone] Carla Espinoza MD VIDEO-ASSISTED THORACIC SURGERY SYMPATHECTOMY 10/31/2024 9:32 AM CDT Anesthesia Event [facility] Operating Room [address] [place] [phone] Amita Tidwell MD Wilkens, Kelly Ann, NP 10/31/2024 8:41 AM CDT - 10/31/2024 1:07 PM CDT Hospital Encounter [facility] Operating Room [address] [place] [phone] Carla Espinoza MD Hyperhidrosis Discharge Disposition: Discharge to home or self care 10/14/[address] [facility] Cardiothoracic Surgery [address] [place] [address] Advanced Medicine 8th Floor [address] Room [address] [place] [phone] Deidre Leyva 10/14/[address] [facility] Surgery [address] [place] [phone] Tonio Cuba NP MVP (mitral valve prolapse) (Primary Dx) 10/13/2024 8:30 AM CDT Pre-Admission Testing [facility] for Preoperative Assessment and Planning [facility] Advanced Medicine ([facility]) [address] [place] [phone] Preoperative testing (Primary Dx) 10/11/2024 2:00 PM CDT Office Visit [facility] Surgery [address] [place] [phone] Carla Espinoza MD Hyperhidrosis 10/06/[address] [facility] Surgery [address] [place] [phone] Carla Espinoza MD Hyperhidrosis (Primary Dx) from [...] (Nerve) 10/31/2024 10:56 AM CDT Narrative PATHOLOGY [facility] - 11/02/2024 4:05 PM CDT EPIC results best viewed via link to PDF [facility] Danna [facility] [place] [address] Note to Patients: This report may contain [...] Gender: M : 1995 (Age: 29) Address: [address] [place] [phone] Hospital #: [id number] Taken:10/31/2024 Received:10/31/2024 Reported: 11/02/2024 Patient Type: [facility] Service: Cardiothoracic Location: [facility] OR POD 3 Physician(s): Carla [...] Surgical Pathology and Flow Cytometry Departments at [facility] as part of an ongoing quality assurance supervisor chassis program and in compliance with federally mandated [...] Surgical Pathology and Flow Cytometry Departments of [facility]. It has not been cleared or approved by the U. S. Food and Drug Administration. IMAGES AND SCANNED DOCUMENTS, IF INCLUDED, ONLY VIEWABLE IN PDF VERSION OF REPORT Carla Espinoza MD LAB PATHOLOGY ORDERABLES Final Result [facility] 3rd Floor [place], [place] [phone] * Airway (10/31/2024 10:19 AM CDT) Narrative [...] oral Blade type: Abhinav Video blade type: [employer] Blade size: 4 Cormack-Lehane (video): grade I [...] Kevin, indirect Negative ABO Rh O Positive [facility] Blood 10/31/2024 9:05 AM CDT 10/31/2024 9:41 AM CDT Narrative [facility] - 10/31/2024 10:45 AM CDT Has the patient had Daratumumab or Isatuximab in the past 6 months?->Unknown us Amita Tidwell MD LAB BLOOD BANK TEST ORDERABL ES Final Result Performing Organization Address [facility] Co de Phone Number [facility] Department [place] [address] * TYPE AND SCREEN 14 DAY (10/13/2024 9:41 AM CDT) Pathologist [facility] Kevin, indirect Negative ABO Rh O Positive [facility] Blood 10/13/2024 9:41 AM CDT 10/13/2024 10:25 AM CDT Narrative [facility] - 10/13/2024 11:31 AM CDT Is this test being ordered in advance for a procedure?->Yes Expected date of procedure:->10/14/24 Has the patient been transfused in the past 3 months?->No us Laney Toussaint NP LAB BLOOD BANK TEST ORDERAB LES Final Result Performing Organization Address [facility] Co de Phone Number [facility] [address] * eGFR (10/13/2024 9:41 AM CDT) Pathologist [facility] eGFR >90 >=60 mL/min/1. 73 m2 Comment: [...] BLOOD ORDERABLES Final Result Performing Organization Address City/[facility] Co de Phone Number [facility] Department [place] [address] * CBC without differential (10/13/2024 9:41 AM CDT) WBC 4.03 3.80 - 9.90 K/cumm Hgb 14.8 13.0 - 17.5 g/dL [facility] Hct 43.2 38.9 - 50.3 % [facility] Plt 222 150 - 400 K/cumm [facility] MPV 9.6 9.1 - 12.3 fL [facility] RBC 4.82 4.30 - 5.80 M/cumm [facility] MCV 89.6 81.3 - 96.4 fL [facility] MCH 30.7 27.1 - 33.3 pg [facility] MCHC 34.3 32.3 - 35.7 g/dL [facility] RDW CV 12.7 11.1 - 14.9 % [facility] RDW SD 41.5 35.7 - 48.1 fL [facility] NRBC abs 0.00 0.00 - 0.01 K/cumm [facility] Blood 10/13/2024 9:41 AM CDT 10/13/2024 10:13 AM CDT Laney Toussaint NP LAB BLOOD ORDERABLES Final Result JASE [facility] Department [place] [address] * Basic metabolic panel (10/13/2024 9:41 AM CDT) Sodium 140 135 - 145 mmol/L Potassium, pl 4.3 3.3 - 4.9 mmol/L [facility] Chloride 107 97 - 110 mmol/L [facility] CO2 27 22 - 32 mmol/L [facility] Anion gap 6 2 - 15 mmol/L [facility] BUN 20 6 - 25 mg/dL [facility] Creatinine 1.06 0.80 - 1.30 mg/dL [facility] Glucose 101 70 - 199 mg/dL [facility] Comment: Interpretive Data Fasting glucose >/= 126 [...] 2022. Calcium 9.1 8.5 - 10.3 mg/dL [facility] Blood 10/13/2024 9:41 AM CDT 10/13/2024 10:13 AM CDT Laney Toussaint NP LAB BLOOD ORDERABLES Final Result Performing Organization Address City/[facility] Co de Phone Number JASE [facility] Department [place] [address] from Last 3 Months Insurance [facility] PPO [facility] PPO Advance Directives For more information, please contact: [phone] * Full Code (Latest Code Status on File) Date Activated Date Inactivated Comments 10/31/2024 11:34 AM 10/31/2024 5:07 PM Care Teams Prototype Special Build Relationship Specialty Start Date End Date No, Physician PCP - General 10/06/24
== END 2024-12-06 21:20 | disposition left against medical advice (07) ==
LOC: ANHED 20:16
DX: R04.2 Hemoptysis (principal)
CPT/HCPCS: 99199

== ENCOUNTER 2025-04-17 19:14 | Emergency (ER) | payer OTHER, SELFPAY ==
--- NOTE | ~2025-04-17 | XR_ITS ---
EXAMINATION: XR finger 2nd LT min 2V DATE: 04/17/2025 19:41 INDICATION: Chain saw injury with laceration to the left second digit TECHNIQUE: Dorsal palmar, lateral and 2 oblique views of the left second digit were obtained COMPARISON: None FINDINGS: Alignment is normal. No fracture. Joint spaces are normal. Small linear collection of lucent gas extending along the superficial margin of the ulnar collateral ligament at the second metacarpophalangeal joint. Soft tissues are otherwise unremarkable. No radiopaque foreign bodies. IMPRESSION: 1. Small amount of soft tissue gas at the second metacarpophalangeal joint consistent with provided history of laceration. No osseous abnormality or radiopaque foreign body. Reviewed, dictated and finalized at location A. IMPRESSION: 1. Small amount of soft tissue gas at the second metacarpophalangeal joint cons istent with provided history of laceration. No osseous abnormality or radiopaqu e foreign body.
--- NOTE | 2025-04-17 19:15 | ED_ITS ---
HPI - Wound/Laceration General Chief Complaint: Wound/Laceration Stated Complaint: stiches on L pointer finger Source: patient and RN notes reviewed Mode of arrival: ambulatory Limitations: no limitations History of Present Illness HPI narrative: Patient is a 29-year-old male who presents to the [facility] with complaints of laceration to the left index finger. Patient presents with 2 cm laceration to the dorsal aspect of the proximal phalanx of his left index finger. Bleeding is controlled. Patient states that he was using a chainsaw while at work 3 hours ago when the kick back caused the laceration. Distal neurovascular and motor status intact. Patient states that his last tetanus shot was in 2021. Related Data Home Medications ?Medication ?Instructions ?Recorded ?Confirmed ?Last Taken ?Type No Home Medications 04/17/25 04/17/25 U nknown History Allergies Allergy/AdvReac Type Severity Reaction Status Date / Time No Known Allergies Allergy Unknown Verified 04/17/25 19:24 Review of Systems Review of Systems: CONSTITUTIONAL: Denies fever, chills, or sweats. EYES: Denies visual changes, redness, or discharge. ENT: Denies otalgia and sore throat CARDIOVASCULAR: Denies chest pain, palpitations, or edema. RESPIRATORY: Denies cough or dyspnea. GASTROINTESTINAL: Denies abdominal pain, nausea, vomiting, or diarrhea. GENITOURINARY: Denies dysuria or hematuria. SKIN: Reports laceration to the left index finger. MUSCULOSKELETAL: Denies back pain, joint pain, or myalgia. NEUROLOGIC: Denies headache, numbness, or weakness. Pertinent positives per HPI. [facility] Past Medical History Medical History Healthy adult male Surgical History Surgical History No history of previous surgery Social History Social History Smoking status: Never smoker Alcohol intake: never Substance use: never Gender identity (if verbalized by the patient): Male Comments At the time of my signature, I reviewed and agree with the nursing past medical, surgical, social, and family history. There is no relevant family history pertinent to the patient complaint. Exam Narrative: GENERAL: This is a well-nourished, well-developed patient, in no apparent distress. HEAD: normocephalic, atraumatic. EYES: PERRL. Sclera clear/white. Vision is grossly intact. EARS: External ears normal, auditory canals clear and without drainage, TMs normal without perforation. Hearing grossly intact. NOSE: External nose normal with no obvious nasal discharge, nares without redness, no rhinorrhea. THROAT: Mucous membranes moist, posterior pharynx clear. NECK: Neck supple, non-tender without lymphadenopathy, masses or thyromegaly. CARDIOVASCULAR: Regular rate and rhythm without murmurs, gallops, or rubs. RESPIRATORY: Clear to auscultation. Breath sounds equal bilaterally. No wheezes, rales, or rhonchi. GASTROINTESTINAL: Abdomen soft, non-tender, nondistended. Bowel sounds are active. No hepato-splenomegaly, or palpable masses. No guarding. SKIN: 2 cm laceration to the dorsal aspect of the proximal phalanx of the left index finger. Distal neurovascular and motor status intact. NEURO: awake, alert, and oriented to person, place and time. There were no obvious focal neurologic abnormalities. Course Course Level of Care: Express Care Visit Vital Signs Vital signs: Vital Signs Temperature 97.8 F 04/17/25 19:26 Pulse Rate 71 04/17/25 19:26 Respiratory Rate 16 04/17/25 19:26 Blood Pressure 115/60 04/17/25 19:26 Pulse Oximetry 100 04/17/25 19:26 Temperature 97.8 F 04/17/25 19:26 Pulse Rate 71 04/17/25 19:26 Respiratory Rate 16 04/17/25 19:26 Blood Pressure 115/60 04/17/25 19:26 Pulse Oximetry 100 04/17/25 19:26 Reviewed Procedures Laceration Laceration 1: Date: 04/17/25 Time: 20:05 Site: hand ( Left index finger) Side (If applicable): left Size (cm): 2 Description: linear Depth: simple, single layer Local Anesthetic: lidocaine 1% Amount of anesthesia used (mL): 2 Pre-repair: irrigated ====== Skin Level ====== Skin layer closed with: nylon Size (cm): 4-0 Number of sutures: 5 Technique: simple, interrupted ====== Subcutaneous Layer ====== ====== Muscle Layer ====== ====== Tendon Layer ====== Dressing: Five sutures placed. Patient tolerated well. Sterile technique used. Dressing and splint placed. Orthopedic Splinting/Casting Injury #1: Splinting/Casting Date: 04/17/25 Splinting/Casting Time: 20:10 Side: left Upper Extremity Injury Location: finger Upper Extremity Immobilizer: finger (other) Pre-Formed: metal foam finger splint Pre-Procedure Neuro Vascular Exam: normal Post-Procedure Neuro Vascular Exam: normal MDM - Wound/Laceration MDM Narrative Medical decision making narrative: Laceration thoroughly cleaned prior to repair. Laceration repaired with 5 sutures. Patient instructed to have these removed in 7-10 days. Advised to monitor for signs of infection and follow up with primary care physician as needed. Patient placed and finger splint to keep finger from bending to ensure good wound healing. Differential Diagnosis Differential diagnosis: Likely laceration, avulsion of skin and other (open fracture of index finger) Imaging Data Attestation: I personally reviewed and interpreted this imaging study as follows: My impression: No acute fracture or dislocation. Critical Care Time Critical Care Time Critical Care Time: No Discharge Plan Discharge Clinical Impression: Laceration of left index finger Qualifiers: Encounter type: initial encounter Damage to nail status: without damage Foreign body presence: without foreign body Qualified Code(s): S61.211A - Laceration without foreign body of left index finger without damage to nail, initial encounter Patient Disposition: Home Condition: Stable Instructions: Care For Your Stitches (ED), Laceration (ED) Additional Instructions: -Have sutures removed in 7-10 days. -Keep the dressing clean and dry for 1-2days; then you may gently clean with soap and water whenever you take a shower; however no continuous water contact like dishes or swimming. Getting them too wet can slow down healing and raise your chance of getting an infection. After you wash your stitches or agapito, pat them dry and put an antibiotic ointment on them. -watch for signs of infection including: redness or swelling around the cut, or pus drains from the cut. It is normal for clear yellow fluid to drain from the cut in the first few days. -follow up with PCP for suture/s Patient Language: Kyrgyz Prescriptions: No Action No Home Medications Follow-up/Referrals: UNKNOWN,DOCTOR [Primary Care Provider] Time of Disposition: 20:12
[2025-04-17 19:26] VITALS: BP 115/60; PULSE 71; RESP 16; TEMP 36.6; O2SAT 100
[2025-04-17] MEDS: LIDOCAINE 1% LOCAL INJ 2 ML AMPUL 6 ML INFILTRATE (19:55)
== END 2025-04-17 20:20 | disposition home or self-care (01) ==
PROVIDERS: Emergency Provider Nurse Practitioner
DX: S61.211A Laceration without foreign body of left index finger without damage to nail, initial encounter (principal); W29.3XXA Contact with powered garden and outdoor hand tools and machinery, initial encounter
CPT/HCPCS: 12001; 73140; 99213; G0463; J2003